=== PATIENT | female | born 1955 | race Caucasian/White ===

== ENCOUNTER 2020-10-14 08:18 | Emergency (ER) | payer BC, SELFPAY ==
[2020-10-14 08:30] VITALS: BP 126/70; PULSE 90; RESP 16; TEMP 36.2; O2SAT 99
--- NOTE | 2020-10-14 08:40 | ED.URI ---
HPI - URI/Sore Throat General Chief Complaint: Upper Respiratory Infection Stated Complaint: Sinus Pressure History of Present Illness HPI Narrative: This is a 64 year women who covid tested herself yesterday which was negative and her whole family is sick and they all tested negative . Patient is coughing and having sinus pressure. Patient denies fever, nausea, vomiting, diarrhea. Patient also complains of a sore throat patient states that the symptoms have continued for the past 6 days days. The coughing is getting worse and the sinus pressure on her face is getting tighter Related Data Home Medications Medication Instructions Recorded Confirmed cholecalciferol (vitamin D3) 25 mcg PO DAILY 10/14/20 10/14/20 esomeprazole magnesium [Nexium] 20 mg PO DAILY 10/14/20 10/14/20 Allergies Allergy/AdvReac Type Severity Reaction Status Date / Time No Known Allergies Allergy Verified 10/14/20 08:37 Review of Systems Review of Systems: CONSTITUTIONAL: Denies fever, chills, or sweats. EYES: Denies visual changes, redness, or discharge. ENT: Reports rhinorrhea, congestion, sore throat, or otalgia. CARDIOVASCULAR:Denies chest pain, palpitations, or edema. RESPIRATORY: Reports cough or dyspnea. GASTROINTESTINAL: Denies abdominal pain, nausea, vomiting, or diarrhea. GENITOURINARY: Denies dysuria or hematuria. SKIN:[Denies rash or itching. MUSCULOSKELETAL:Denies back pain, joint pain, or myalgia. NEUROLOGIC: complains of a slight headache denies numbness, or weakness. PSYCHIATRIC:Denies anxiety or depression PMFSH Comments At time as signature, I have reviewed and agree with nursing past medical, social, surgical and family history. Please see nursing chart for further information. There is no relevant family history pertinent to the presenting complaint. Exam Psych: Other: GENERAL:Well-appearing, well-nourished, and in no acute distress. HEAD:Normocephalic, atraumatic. EYES: PERRLA and EOMI. ENT: Nares clear, reports clearish moderate amount palpable boggy turbinate rhinorrhea. Mucous membranes moist. T-zone pressure and pain NECK: Supple. CHEST: Clear to auscultation. No respiratory distress. HEART: Regular rate and rhythm. Normal peripheral pulses. ABDOMEN: Soft, nontender, nondistended, normal active bowel sounds. EXTREMITIES: Normal range of motion. No edema. SKIN: Warm, dry, no rash. NEURO: No focal deficits. Alert and oriented x3. Course Vital Signs Vital signs: Vital Signs Temperature 97.1 F L 10/14/20 08:30 Pulse Rate 90 10/14/20 08:30 Respiratory Rate 16 10/14/20 08:30 Blood Pressure 126/70 10/14/20 08:30 Pulse Oximetry 99 10/14/20 08:30 Temperature 97.1 F L 10/14/20 08:30 Pulse Rate 90 10/14/20 08:30 Respiratory Rate 16 10/14/20 08:30 Blood Pressure 126/70 10/14/20 08:30 Pulse Oximetry 99 10/14/20 08:30 Discharge Plan Discharge Clinical Impression: Sinusitis Qualifiers: Sinusitis location: frontal Chronicity: acute Recurrence: non-recurrent Qualified Code(s): J01.10 - Acute frontal sinusitis, unspecified Patient Disposition: Home, Self-Care Condition: Stable Instructions: Antibiotic Form, Rhinosinusitis (ED) Additional Instructions: Viral illness may last between 7-12days; antibiotic is NOT recommended at this time. Recommend antihistamine such as Benadryl at night time and Claritin/Zyrtec/Graciela during the day Also, recommend symptomatic treatment includes: rest, fluids, and increase humidity of the air at home. Recommend Acetaminophen or nonsteroidal anti-inflammatory agents (NSAIDs) as directed in the bottle to reduce fever and/pain/headache. Avoid smoking/second-hand smoke. Limit visits to areas with large crowds. Please schedule a follow-up visit with your personal physician for further evaluation and treatment within 3-5days. Including recheck and discussion of your blood pressure. If your symptoms persist, change or worsen significantly before you
== END 2020-10-14 09:02 | disposition home or self-care (01) ==
PROVIDERS: Emergency Provider Nurse Practitioner Family
DX: J01.10 Acute frontal sinusitis, unspecified (principal)
CPT/HCPCS: 99203; G0463

== ENCOUNTER 2020-11-30 08:53 | Emergency (ER) | payer BC, SELFPAY ==
[2020-11-30 09:05] VITALS: BP 123/75; PULSE 88; RESP 16; TEMP 36.8; O2SAT 99
[2020-11-30 09:08] VITALS: BP 123/75; PULSE 88; RESP 16; TEMP 36.8; O2SAT 99
--- NOTE | 2020-11-30 09:19 | ED.EAR ---
HPI - Ear Problem General Chief complaint: Ear Stated complaint: Ear Pain Time Seen by Provider: 11/30/20 09:12 Source: patient and RN notes reviewed Mode of arrival: ambulatory Limitations: no limitations History of Present Illness HPI Narrative: Patient presents today complaining of right ear pain x3 to 4 days it has been worsening since onset. Denies decreased hearing, drainage, cough, congestion, rhinorrhea, sore throat. Currently rates her pain 5/10 and has tried no [id number] treatment prior to arrival. Pain increases when she moves her mouth or chews. She is also reporting pain to the left nare. Many years ago she was scratched in the left side of her nose and every now and again it, flares up and she needs to put antibiotic ointment, specifically mupirocin on it. States Neosporin does not work. She is requesting a prescription for mupirocin today. MD Complaint: ear pain Related Data Home Medications Medication Instructions Recorded Confirmed cholecalciferol (vitamin D3) 25 mcg PO DAILY 10/14/20 11/30/20 esomeprazole magnesium [Nexium] 40 mg PO DAILY 11/30/20 11/30/20 Allergies Allergy/AdvReac Type Severity Reaction Status Date / Time No Known Allergies Allergy Verified 11/30/20 08:58 Review of Systems Review of Systems: CONSTITUTIONAL: Denies body aches, fever, chills, or sweats. EYES: Denies visual changes, redness, or discharge. ENT: Denies rhinorrhea, congestion, sore throat. + Right ear pain, left nare pain CARDIOVASCULAR: Denies chest pain, palpitations, or edema. RESPIRATORY: Denies cough or dyspnea. GASTROINTESTINAL: Denies abdominal pain, nausea, vomiting, or diarrhea. GENITOURINARY: Denies dysuria or hematuria. SKIN: Denies rash, itching, or wounds. MUSCULOSKELETAL: Denies back pain, joint pain, or myalgia. NEUROLOGIC: Denies headache, numbness, tingling, or weakness. PSYCH: Denies depression or anxiety. PMFSH Comments At time of signature, I have reviewed and agree with nursing past medical, surgical, social and family history unless otherwise noted. Please see nursing chart for further information. There is no relevant family history pertinent to the presenting complaint Exam Narrative: GENERAL: Well-appearing, well-nourished, and in no acute distress. HEAD: Normocephalic, atraumatic. EYES: EOMI. No redness or drainage. Conjunctivae normal. ENT: Mucous membranes pink and moist. Left nare mildly erythematous without lesions or crusting. No rhinorrhea. Right ear with movement and tragal tenderness. Right ear canal is mildly erythematous without edema or drainage. Left TM and canal normal. Throat normal. Uvula midline. NECK: Normal AROM. Supple. No lymphadenopathy. CHEST: No respiratory distress. Clear to auscultation. HEART: Regular rate and rhythm. No murmur appreciated. Normal peripheral pulses. EXTREMITIES: Normal range of motion. No edema. SKIN: Warm, dry, no rash. Capillary refill normal. Normal skin turgor. NEURO: No focal deficits. Alert and oriented x3. Gait steady. PSYCH: Normal affect. No signs of depression or anxiety. Course Vital Signs Vital signs: Vital Signs Temperature 98.2 F 11/30/20 09:05 Pulse Rate 88 11/30/20 09:05 Respiratory Rate 16 11/30/20 09:05 Blood Pressure 123/75 11/30/20 09:05 Pulse Oximetry 99 11/30/20 09:05 Temperature 98.2 F 11/30/20 09:08 Pulse Rate 88 11/30/20 09:08 Respiratory Rate 16 11/30/20 09:08 Blood Pressure 123/75 11/30/20 09:08 Pulse Oximetry 99 11/30/20 09:08 Reviewed. Pt has been instructed to follow up with her PCP regarding her elevated blood pressure today. Medical Decision Making Differential Diagnosis Differential Diagnosis: Otitis media, otitis externa, ruptured TM, serous otitis, eustachian tube dysfunction, cerumen impaction Vital Signs Vital Signs: Vital Signs Temperature 98.2 F 11/30/20 09:05 Pulse Rate 88 11/30/20 09:05 Respiratory Rate 16 11/30/20 09:05 B
== END 2020-11-30 09:26 | disposition home or self-care (01) ==
PROVIDERS: Emergency Provider Nurse Practitioner
DX: H60.501 Unspecified acute noninfective otitis externa, right ear (principal)
CPT/HCPCS: 99213; G0463